=== PATIENT | female | born 1960 | race Caucasian/White ===

== ENCOUNTER 2018-03-30 16:43 | Outpatient (CLI) | payer BC ==
--- NOTE | 2018-03-31 09:36 | Ultrasound Report ---
Reason: HEMATURIA, PELVIC PAIN Procedure Date: 03/30/2018 Accession Number: [id number] / [id number] Procedure: US - Retroperitoneal CPT Code: FULL RESULT: EXAM: RENAL ULTRASOUND EXAM DATE: 03/30/2018 05:10 PM. CLINICAL HISTORY: Hematuria, pelvic pain. COMPARISON: None. TECHNIQUE: Real-time scanning was performed with static images obtained. FINDINGS: Right Kidney: 10.1 x 5.8 x 4.6 cm. Normal cortical echotexture with no stones or hydronephrosis. There is an oval 18 x 11 x 12 mm nonspecific hypoechoic structure in the medullary space, indeterminate by ultrasound. Favor possible parapelvic cyst, although a solid mass versus column of Feroz are also possible. Left Kidney: 10.2 x 5.1 x 4.8 cm. Normal cortical echotexture. No stone or hydronephrosis. 12 mm upper pole cyst noted. Bladder: Bilateral jets seen. The prevoid bladder volume was 209 cc. The postvoid bladder volume was 0 cc. Other: None. IMPRESSION: 1. Nonspecific 18 mm finding medullary space of the right mid pole kidney as described. Parapelvic cyst is favored over a solid finding, but given history of hematuria, consider contrast-enhanced dedicated renal CT for further evaluation. [facility]
--- NOTE | 2018-03-31 09:36 | Ultrasound Report ---
Reason: HEMATURIA, PELVIC PAIN Procedure Date: 03/30/2018 Accession Number: [id number] / [id number] Procedure: US - Pelvic w/Transvaginal CPT Code: FULL RESULT: EXAM: PELVIC ULTRASOUND EXAM DATE: 03/30/2018 06:00 PM. CLINICAL HISTORY: Hematuria, pelvic pain. COMPARISON: None. TECHNIQUE: Realtime transabdominal pelvic scan performed to identify the uterus and adnexa and as an overview of other pelvic structures, followed by transvaginal scan to provide greater detail of the uterus and adnexa, with static image documentation. FINDINGS: Uterus: 7.7 x 3 x 3.9 cm, volume 47.6 cc. Anteverted position. Normal overall size and echotexture. Masses: None. Endometrium: 2 mm. Normal. Cervix: Unremarkable. Right Ovary: 2.2 x 1.3 x 2 cm, volume 3 cc. Normal echotexture and blood flow. Left Ovary: Not visualized transabdominally or transvaginally. Free Fluid: None. Other: Symmetric subjective prominence of the parametrial veins bilaterally. IMPRESSION: 1. Mild subjective prominence of the parametrial veins bilaterally. No other specific abnormalities demonstrated. 2. Nonvisualization of the left ovary. [facility]
== END 2018-03-30 16:44 | disposition home or self-care (01) ==
LOC: DI 16:43
PROVIDERS: ATTEND Registered Nurse
DX: R10.2 Pelvic and perineal pain (principal); R31.9 Hematuria, unspecified
CPT/HCPCS: 76770; 76830; 76856

== ENCOUNTER 2019-12-25 10:30 | Outpatient (CLI) | payer BC | END 2019-12-25 10:31 | disposition home or self-care (01) | LOC: COV 10:30 | PROVIDERS: ATTEND Family Medicine | DX: R05 Cough (principal); R53.83 Other fatigue; J02.9 Acute pharyngitis, unspecified; Z20.828 Contact with and (suspected) exposure to other viral communicable diseases ==

== ENCOUNTER 2020-03-27 08:10 | Outpatient (CLI) | payer OTHER | END 2020-03-27 08:11 | disposition home or self-care (01) | LOC: COV 08:10 | PROVIDERS: ATTEND Family Medicine | DX: M79.10 Myalgia, unspecified site (principal); R68.83 Chills (without fever); R11.0 Nausea; Z20.822 Contact with and (suspected) exposure to COVID-19 ==

== ENCOUNTER 2020-11-01 08:00 | Outpatient (CLI) | payer OTHER | END 2020-11-01 23:59 | disposition home or self-care (01) | LOC: LAB.S 08:00 | PROVIDERS: ATTEND Nurse Practitioner | DX: N39.0 Urinary tract infection, site not specified (principal) | CPT/HCPCS: 87077; 87086; 87181 ==

== ENCOUNTER 2020-12-24 08:00 | Outpatient (CLI) | payer OTHER | END 2020-12-24 23:59 | disposition home or self-care (01) | LOC: LAB.S 08:00 | PROVIDERS: ATTEND Physician Assistant Medical | DX: N39.0 Urinary tract infection, site not specified (principal) | CPT/HCPCS: 87086; 87181 ==